=== PATIENT | female | born 1940 | race Two or more races ===

== ENCOUNTER 2021-07-03 09:01 | Inpatient (IN) | payer MEDICAID ==
[~2021-07-03] VITALS: Ht 152.4 cm; Wt 65.3 kg
--- NOTE | 2021-07-03 09:12 | NUR ---
TO ER BED 2, C/O Chest Pain on/off started 3days ago, CHANGED TO A GOWN, ATTACHED MONITOR, AT BEDSIDE
--- NOTE | 2021-07-03 09:37 | NUR ---
SALINE LOCK ESTABLISHED AND BLOOD DRAWN AND SENT TO LAB
[2021-07-03 09:44] LABS: BASOPHILS # (AUTO) 0.1 K/uL (0.0-0.2); BASOPHILS % (AUTO) 1.3 % (0.0-2.0); EOSINOPHILS % (AUTO) 3.2 % (0.0-6.0); HEMATOCRIT 35 % (33-45); HEMOGLOBIN 11.5 g/dL (11.5-14.8); LYMPHOCYTES # (AUTO) 1.7 K/uL (0.8-4.8); LYMPHOCYTES % (AUTO) 18.8 % (20.0-44.0); MEAN CORPUSCULAR HGB CONC 33 g/dl (31.0-36.0); MEAN CORPUSCULAR VOLUME 93 fL (82-100); MONOCYTES # (AUTO) 0.7 K/uL (0.1-1.30); MONOCYTES % (AUTO) 7.6 % (2.0-12.0); NEUTROPHILS # (AUTO) 6.2 K/uL (1.8-8.9); NEUTROPHILS % (AUTO) 69.1 % (43.0-81.0); PLATELET COUNT (AUTO) 255 K/uL (150-450); RED BLOOD CELL COUNT(AUTO) 3.76 MIL/uL (4.0-5.2)
--- NOTE | 2021-07-03 09:44 | NUR ---
start [address] Do. noted and carried out.
[2021-07-03 09:52] LABS: CARBON DIOXIDE 27 mmol/L (21-32); CHLORIDE 100 mmol/L (98-107); CREATININE 3.9 mg/dL (0.6-1.3); GLUCOSE 112 mg/dL (74-106); POTASSIUM 5.1 mmol/L (3.5-5.1); SODIUM SERUM 136 mmol/L (136-145); UREA NITROGEN, BLOOD 19 mg/dL (7-18)
[2021-07-03 09:59] LABS: ALANINE AMINOTRANSFERASE 20 U/L (12-78); ALBUMIN 3.8 g/dL (3.4-5.0); ALKALINE PHOSPHATASE 81 U/L (46-116); ASPARTATE AMINOTRANSFERASE 21 U/L (15-37); BILIRUBIN,DIRECT 0.1 mg/dL (0.0-0.2); BILIRUBIN,TOTAL 0.5 mg/dL (0.2-1.0); LIPASE 372 U/L (73-393); TOTAL PROTEIN, SERUM 8.3 g/dL (6.4-8.2)
[2021-07-03] MEDS ORDERED: LISI20TA31 PO (10:01)
[2021-07-03] MEDS ORDERED: CALC667C6 PO (10:01)
[2021-07-03] MEDS ORDERED: ALLO100T PO (10:01)
[2021-07-03] MEDS ORDERED: SODI650T PO (10:01)
[2021-07-03] MEDS ORDERED: THIA100T70 PO (10:01)
[2021-07-03] MEDS ORDERED: AMLO10TA4 PO (10:01)
--- NOTE | 2021-07-03 10:01 | NUR ---
COVID SWAB DONE AND SENT TO LAB
--- NOTE | 2021-07-03 11:15 | NUR ---
TAKEN TO CT
[2021-07-03] MEDS ORDERED: IV NS 0.9% 250 ML IV ONE ×2 (11:23→12:27)
[2021-07-03] MEDS ORDERED: CT SWABBABLE VALVE TRANS SET 1 EA INFUS.SET MC ONE ×2 (11:23→12:27)
[2021-07-03] MEDS ORDERED: IOHEXOL-300 100 ML VIAL IV ONE (11:23)
[2021-07-03] MEDS ORDERED: IOHEXOL-350 100 ML VIAL IV ONE (12:27)
--- NOTE | 2021-07-03 12:43 | NUR ---
SPOKE TO SON SACHA LULA UPDATE FOR HIS MOTHER AND THAT SHE WILL BA TAKEN TO HAVE A CT ANGIOGRAM, SON GAVE VERBAL CONSENT
--- NOTE | 2021-07-03 12:46 | NUR ---
US TECH AT BEDSIDE
[2021-07-03] MEDS: METOPROLOL TARTRATE INJ 5 MG/5 ML AMPUL IVP PRN ×3 (13:05→13:20)
--- NOTE | 2021-07-03 13:08 | NUR ---
kristian colorado RN called made aware that the pt creatinine level is 3.9. as per continue cta procedure.
[2021-07-03] MEDS ORDERED: METOPROLOL TARTRATE INJ 5 MG/5 ML AMPUL ONE (13:11)
[2021-07-03] MEDS ORDERED: NITROGLYCERIN 0.4 MG/TAB BOTTLE ONE (13:12)
--- NOTE | 2021-07-03 13:26 | NUR ---
CTA PROCEDURE WELL TOLERATED BY THE PT. V/S STABLE, KEPT RESTED AND COMFORTABLE. REPORT GIVEN TO LYNNETTE CHEN FOR RAE.
[2021-07-03] MEDS ORDERED: NITROGLYCERIN 0.4 MG/TAB BOTTLE SL ONE (13:30)
--- NOTE | 2021-07-03 17:17 | NUR ---
REPORT GIVEN T0 AMI CHURCH
[2021-07-03] MEDS ORDERED: ONDANSETRON HCL/PF 4 MG/2 ML VIAL IVP PRN (17:30)
[2021-07-03] MEDS ORDERED: ACETAMINOPHEN 325 MG TABLET PO PRN (17:30)
[2021-07-03] MEDS ORDERED: DEXTROSE 50%-WATER 50 ML DISP.SYRIN IV PRN (17:30)
[2021-07-03] MEDS ORDERED: INSULIN REGULAR, HUMAN 100 UNIT/ML 3 ML VIAL SQ PRN (17:30)
[2021-07-03] MEDS ORDERED: PANTOPRAZOLE 40 MG TABLET.DR PO SCH (18:00)
[2021-07-03 20:00] VITALS: BP 175/86
--- NOTE | 2021-07-03 20:20 | NUR ---
MS/TELE/RN RECEIVED PATIENT AWAKE, ALERT, ORIENTED, COMFORTABLE, NO SIGNS OF DISTRESS NOTED, SON AT BEDSIDE, ADMISSION DONE PER PROTOCOL, INFORMATIONS OBTAINED FROM SON AND PATIENT, PLAN OF CARE DISCUSSED, VERBALIZED UNDERSTANDING, FALL PRECAUTIONS PER PROTOCOL, WILL MONITOR.
[2021-07-03] MEDS: ASPIRIN 81 MG TAB.CHEW PO SCH (20:56)
[2021-07-03] MEDS: LISINOPRIL (20MG) 20 MG TABLET PO SCH (20:56)
[2021-07-03] MEDS: SODIUM BICARBONATE 650 MG TABLET PO SCH (20:56)
[2021-07-03] MEDS: AMLODIPINE BESYLATE 10 MG TABLET PO SCH (20:57)
[2021-07-03] MEDS: THIAMINE HCL 100 MG TABLET PO SCH (20:58)
[2021-07-03] MEDS: ALLOPURINOL 100 MG TABLET PO SCH (20:58)
[2021-07-03] MEDS ORDERED: PANTOPRAZOLE 40 MG VIAL IV SCH (21:00)
[2021-07-03] MEDS: HEPARIN SODIUM, PORCINE 5000 UNITS/1 ML VIAL SQ SCH (21:09)
--- NOTE | 2021-07-03 21:46 | NUR ---
MS/TELE/RN PATIENT REFUSED INSULIN. PATIENT DOES NOT WANT TO BE BOTHERED SO HE CAN SLEEP. Addendum: 07/03/21 at 2147 by ERIKA CAMPOS RN PLEASE DISREGARD ABOVE DOCUMENTATION, IT WAS ENTERED BY MISTAKE.
[2021-07-03] MEDS: BLOOD SUGAR DIAGNOSTIC 1 EACH STRIP IN SCH (21:53)
[2021-07-04] VITALS: BP 152/72
[2021-07-04 00:26] LABS: CALCIUM, SERUM 7.7 mg/dL (8.5-10.1); CARBON DIOXIDE 24 mmol/L (21-32); CHLORIDE 102 mmol/L (98-107); CREATININE 4.4 mg/dL (0.6-1.3); GLUCOSE 101 mg/dL (74-106); POTASSIUM 5.4 mmol/L (3.5-5.1); SODIUM SERUM 136 mmol/L (136-145); UREA NITROGEN, BLOOD 24 mg/dL (7-18)
[2021-07-04 00:31] LABS: ALANINE AMINOTRANSFERASE 16 U/L (12-78); ALBUMIN 3.2 g/dL (3.4-5.0); ALKALINE PHOSPHATASE 67 U/L (46-116); ASPARTATE AMINOTRANSFERASE 16 U/L (15-37); BILIRUBIN,TOTAL 0.4 mg/dL (0.2-1.0); MAGNESIUM 1.8 mg/dL (1.8-2.4); PHOSPHORUS 3.6 mg/dL (2.5-4.9); TOTAL PROTEIN, SERUM 6.9 g/dL (6.4-8.2)
[2021-07-04 04:00] VITALS: BP 168/72
--- NOTE | 2021-07-04 04:40 | NUR ---
RT NOTE PT REFUSED EKG AT THIS TIME. PT WANTS TO SLEEP. RN ERIKA AWARE.
--- NOTE | 2021-07-04 06:14 | NUR ---
MS/TELE/RN PATIENT IS STILL SLEEPING, APPEAR COMFORTABLE, NO SIGNS OF DISTRESS NOTED, CALL LIGHT IN REACH, ALL NEEDS ATTENDED AT THIS TIME, WILL CONTINUE TO MONITOR.
[2021-07-04 06:51] LABS: BASOPHILS % (AUTO) 0.6 % (0.0-2.0); EOSINOPHILS % (AUTO) 4.3 % (0.0-6.0); HEMATOCRIT 31 % (33-45); HEMOGLOBIN 10.3 g/dL (11.5-14.8); LYMPHOCYTES # (AUTO) 1.4 K/uL (0.8-4.8); LYMPHOCYTES % (AUTO) 18.7 % (20.0-44.0); MEAN CORPUSCULAR HGB CONC 33 g/dl (31.0-36.0); MEAN CORPUSCULAR VOLUME 92 fL (82-100); MONOCYTES # (AUTO) 0.6 K/uL (0.1-1.30); MONOCYTES % (AUTO) 7.8 % (2.0-12.0); NEUTROPHILS # (AUTO) 5.3 K/uL (1.8-8.9); NEUTROPHILS % (AUTO) 68.6 % (43.0-81.0); PLATELET COUNT (AUTO) 259 K/uL (150-450); RED BLOOD CELL COUNT(AUTO) 3.36 MIL/uL (4.0-5.2); WHITE BLOOD COUNT (AUTO) 7.7 K/uL (4.3-11.0)
[2021-07-04] MEDS: BLOOD SUGAR DIAGNOSTIC 1 EACH STRIP IN SCH ×4 (07:06→22:44)
[2021-07-04 07:10] LABS: ALANINE AMINOTRANSFERASE 15 U/L (12-78); ALBUMIN 3.2 g/dL (3.4-5.0); ALKALINE PHOSPHATASE 65 U/L (46-116); ASPARTATE AMINOTRANSFERASE 15 U/L (15-37); BILIRUBIN,TOTAL 0.4 mg/dL (0.2-1.0); CARBON DIOXIDE 22 mmol/L (21-32); CHLORIDE 101 mmol/L (98-107); CREATININE 4.7 mg/dL (0.6-1.3); GLUCOSE 91 mg/dL (74-106); MAGNESIUM 1.9 mg/dL (1.8-2.4); PHOSPHORUS 3.6 mg/dL (2.5-4.9); POTASSIUM 4.7 mmol/L (3.5-5.1); SODIUM SERUM 136 mmol/L (136-145); UREA NITROGEN, BLOOD 24 mg/dL (7-18)
[2021-07-04 07:16] LABS: CHOLESTEROL 194 mg/dL (<200); HDL CHOLESTEROL 41 mg/dL (40-60); LDL 107 mg/dL (0-99); TRIGLYCERIDES 222 mg/dL (30-150)
--- NOTE | 2021-07-04 07:30 | NUR ---
CONCERT PIANIST NOTES PT IN BED, AWAKE, ALERT AND VERBALLY RESPONSIVE, NO COMPLAINT OF PAIN, CALL LIGHT WITHIN REACH, ASSISTED WITH BREAKFAST, NEEDS ATTENDED.
[2021-07-04] MEDS: ISOSORBIDE DINITRATE (20MG) 20 MG TABLET PO SCH ×2 (08:44→21:18)
[2021-07-04] MEDS: PANTOPRAZOLE 40 MG TABLET.DR PO SCH ×2 (08:44→21:18)
[2021-07-04] MEDS: CALCIUM ACETATE 667 MG TABLET PO SCH ×3 (08:44→16:29)
[2021-07-04] MEDS: LISINOPRIL (20MG) 20 MG TABLET PO SCH (08:45)
[2021-07-04] MEDS: THIAMINE HCL 100 MG TABLET PO SCH (08:45)
[2021-07-04] MEDS: AMLODIPINE BESYLATE 10 MG TABLET PO SCH (08:45)
[2021-07-04] MEDS: SODIUM BICARBONATE 650 MG TABLET PO SCH ×3 (08:45→16:29)
[2021-07-04] MEDS: ASPIRIN 81 MG TAB.CHEW PO SCH (08:45)
[2021-07-04] MEDS: ALLOPURINOL 100 MG TABLET PO SCH (08:45)
[2021-07-04] MEDS: HEPARIN SODIUM, PORCINE 5000 UNITS/1 ML VIAL SQ SCH ×2 (08:53→21:24)
[2021-07-04] MEDS ORDERED: ASPI-1169 PO (11:50)
[2021-07-04] MEDS ORDERED: PANT40TA2 PO (11:50)
[2021-07-04] MEDS ORDERED: ISOS20TA8 PO (11:50)
--- NOTE | 2021-07-04 13:24 | NUR ---
RN MS NOTES PT SEEN AND EXAMINED BY DR. JOHN, PLAN OF CARE DISCUSSED WITH PT, VERBALIZED UNDERSTANDING, PT WILL HAVE HEMODIALYSIS TODAY BEFORE BEING DISCHARGED.
--- NOTE | 2021-07-04 18:43 | NUR ---
RN MS NOTES PT IN BED, AWAKE, ALERT AND ORIENTED, DENIES PAIN OR ANY DISCOMFORT, PM MEDS GIVEN, ABOUT TO START ON HEMODIALYSIS, DISCHARGE ORDER GIVEN BY DR. JOHN, PT TO GO HOME AFTER DIALYSIS, OR IF HD FINISHES LATE AND PT FEELS TIRED, OK TO GO HOME IN THE MORNING PER MD, ALL NEEDS ATTENDED.
--- NOTE | 2021-07-04 19:05 | NUR ---
RN NOTES: -RECEIVED AWAKE ON BED, [place] USING FERNANDEZ(BOTH), HER DIALYSIS IS ON GOING, A/OX4, ABLE TO COMMUNICATE IN [place], ORIENTED TO UNIT AND STAFF, SHE IS AWARE THAT SHE WILL BE DISCHARGE TOMORROW MORNING AND NOT TODAY, PER ENDORSEMENT SON REQUEST TO LET HIM STAY FOR A NIGHT POST DIALYSIS, THEY WILL FETCH HER IN THE MORNING, DISCHARGE PAPERS ARE ALL READY.HL LAC 320 AND LH G#20 , RCW HD CATH, DRESSING IS INTACT, DIALYSIS ON GOING. -FALL,SAFETY AND ASPIRATION PRECAUTION OBSERVED.
[2021-07-04 20:00] VITALS: BP 148/79
--- NOTE | 2021-07-04 21:51 | NUR ---
RN NOTES: -DIALYSIS ON GOING UPON ENDORSEMENT TIME AND WAS COMPLETED AT AROUND 2030, OUTPUT 1,000 ML.DIALYSIS NURSE-ELAINA. -SON-WEI NOTIFIED HIS MOM HAD DIALYSIS.
--- NOTE | 2021-07-04 22:44 | NUR ---
RN NOTES: BLOOD SUGAR CHECKED-103, NO INSULIN PER SCALE.
--- NOTE | 2021-07-05 04:29 | NUR ---
RN NOTES: --AROUND 2129 SHE WAS STILL AWAKE, SHE CALL FOR ASSISTANCE, ABLE TO AMBULATE GOING TO THE BATHROOM WITH STANDBY ASSIST, SHE PEE, SHE WAS ASSISTED BACK TO BED, COOPERATIVE, ACTIVITY TOLERATED WITHOUT DIZZINESS. --ASLEEP IN THE NIGHT, NO PAIN OR DISCOMFORT, BED LOW AND LOCKED, KEPT CALL LIGHT WITHIN EASY REACH, INSTRUCTED TO CALL WHENEVER SHE WANTS TO GO TO THE BATHROOM. ON FREQUENT VISUAL CHECK.
--- NOTE | 2021-07-05 07:15 | NUR ---
MS RN OPENING NOTES RECEIVED PATIENT AWAKE IN BED. PATIENT IS A/O X4. PATIENT IS BREATHING EVENLY AND NONLABORED STABLE ON ROOM AIR. HEARING AIDS IN PLACE. PATIENT DOES NOT COMPLAIN OF PAIN OR DISCOMFORT AT THIS TIME. PATIENT HAS IV ACCESS ON LAC # 20 AND LEFT HAND #20 PATENT AND INTACT. SAFETY MEASURES ARE IN PLACE BED LOW LOCKED AND CALL LIGHT WITHIN REACH. WILL CONTINUE TO MONITOR
--- NOTE | 2021-07-05 07:26 | NUR ---
RN NOTES: AWAKE, LOOKS GOOD, A/OX3, CONVERSANT, SHE WANTS HER SON TO BE CALLED, LATEST WEIGHT 144, NO LABS IN THE MORNING. ENDORSED FOR CONTINUITY OF CARE FOR DISCHARGE THIS MORNING.
[2021-07-05] MEDS: BLOOD SUGAR DIAGNOSTIC 1 EACH STRIP IN SCH (07:39)
[2021-07-05 07:59] VITALS: BP 147/94
[2021-07-05] MEDS: SODIUM BICARBONATE 650 MG TABLET PO SCH (08:25)
[2021-07-05] MEDS: ASPIRIN 81 MG TAB.CHEW PO SCH (08:25)
[2021-07-05] MEDS: HEPARIN SODIUM, PORCINE 5000 UNITS/1 ML VIAL SQ SCH (08:25)
[2021-07-05] MEDS: PANTOPRAZOLE 40 MG TABLET.DR PO SCH (08:26)
[2021-07-05] MEDS: CALCIUM ACETATE 667 MG TABLET PO SCH (08:26)
[2021-07-05] MEDS: AMLODIPINE BESYLATE 10 MG TABLET PO SCH (08:26)
[2021-07-05] MEDS: ALLOPURINOL 100 MG TABLET PO SCH (08:26)
[2021-07-05] MEDS: THIAMINE HCL 100 MG TABLET PO SCH (08:26)
[2021-07-05] MEDS: LISINOPRIL (20MG) 20 MG TABLET PO SCH (08:27)
[2021-07-05] MEDS: ISOSORBIDE DINITRATE (20MG) 20 MG TABLET PO SCH (08:27)
[2021-07-05] MEDS ORDERED: HYDR-4077 PO (08:49)
[2021-07-05 08:55] VITALS: BP 147/94
[2021-07-05] MEDS ORDERED: hydrALAZINE HCL 50 MG TABLET PO SCH (09:00)
--- NOTE | 2021-07-05 09:53 | NUR ---
TIRE DESIGN ENGINEER NOTE RECEIVED ORDER FOR DISCHARGE. PATIENT IS A/O X4. PATIENT IS BREATHING EVENLY AND NONLABORED ON ROOM AIR. PATIENT DOES NOT COMPLAIN OF PAIN AT THIS TIME. PATIENT WAS GIVEN DISCHARGE INSTRUCTIONS BOTH VERBALLY AND IN WRITTEN FORM, VERBALIZED UNDERSTANDING, SON AT BEDSIDE. RX PRESCRIPTION WAS GIVEN. ALL BELONGINGS ACCOUNTED FOR AND FORM SIGNED. IV ACCESS WAS REMOVED AND PRESSURE DRESSING APPLIED. PATIENT LEFT IN STABLE CONDITION WITH FAMILY VIA PRIVATE CAR.
--- NOTE | 2021-07-05 10:30 | NUR ---
RN NOTE PATIENT CAME BACK TO THE FLOOR FEELING DIZZY AND SWEATING, CHECK BLOOD PRESSURE, 89/45. MD NOTIFIED WITH ORDERS TO TAKE ORTHOSTATIC BP. UPON LYING DOWN PATIENTS BP 109/55, STANDING 90/50. MD GAVE NEW ORDER TO BOLUS 500 ML NS, PATIENT AND FAMILY REFUSED AT THIS TIME BECAUSE PATIENT WOULD LIKE TO GO HOME ONCE BP STABILIZES. EXPLAINED RISK AND BENEFITS. WILL RECHECK BP IN 30 MINUTES
--- NOTE | 2021-07-05 12:02 | NUR ---
RN NOTE PATIENT IS FEELING BETTER NO DIZZINESS OR SWEATING, RECHECKED BP 123/58. MD NOTIFIED. PATIENT ASKED TO LEAVE. RESTATED MD OKAY TO GIVE FLUID BOLUS, PATIENT REFUSED AND WANTED TO GO HOME. SON AT BEDSIDE AND AGREED. PATIENT LEFT IN STABLE CONDITION VIA PRIVATE CAR.
[2021-07-05 15:56] VITALS: BP 147/94
== END 2021-07-05 11:22 | disposition home or self-care (01) | DRG 243 ==
LOC: ER 09:52 → TRANSITION 15:57 → TELE 17:19 → MED 07-04 09:18 → UNDODISIN 07-05 09:40
PROVIDERS: ADMIT Nurse Practitioner Acute Care; ATTEND Nurse Practitioner Acute Care
PROC: 5A1D70Z Performance of Urinary Filtration, Intermittent, Less than 6 Hours Per Day (ICD-10-PCS; principal; 2021-07-04)
DX: K21.9 Gastro-esophageal reflux disease without esophagitis (principal); D68.59 Other primary thrombophilia; N18.6 End stage renal disease; I12.0 Hypertensive chronic kidney disease with stage 5 chronic kidney disease or end stage renal disease; E11.22 Type 2 diabetes mellitus with diabetic chronic kidney disease; K80.20 Calculus of gallbladder without cholecystitis without obstruction; I25.10 Atherosclerotic heart disease of native coronary artery without angina pectoris; Z99.2 Dependence on renal dialysis; E66.01 Morbid (severe) obesity due to excess calories; I16.0 Hypertensive urgency; Z68.28 Body mass index [BMI] 28.0-28.9, adult; Z20.822 Contact with and (suspected) exposure to COVID-19
CPT/HCPCS: 36415; 71260-TC; 75574; 80048-TC; 80053-TC; 80061-TC; 80076-TC; 82962-TC; 83690-TC; 83735-TC; 83880; 84100-TC; 84484-TC; 85025-TC; 87081-TC; 90935-TC; 93307-TC; 97116-TC; 97530-TC; C9113; C9803; G0378; J1644; J1815; J3490; J7050; Q9967